=== PATIENT | female | born 1930 | race Caucasian/White ===

== ENCOUNTER 2016-06-29 12:25 | Observation (INO) | payer MEDICARE ==
[2016-06-29] MEDS ORDERED: ZITHROMAX250 M1 PO (12:58)
[2016-06-29] MEDS ORDERED: COSOPT EYE DROP10 ML OP (12:59)
[2016-06-29] MEDS ORDERED: LISINOPRIL-HCT1 EAC3 PO (12:59)
[2016-06-29] MEDS ORDERED: XALATAN2.5 M1 OP (12:59)
[2016-06-29] MEDS ORDERED: OMEPRAZOLE20 M3 PO (13:00)
[2016-06-29 13:25] LABS: BASO % 0.6 % (0-2); BASO ABSOLUTE COUNT 0.1 tho/cmm (0.0-0.2); EOSINOPHIL ABSOLUTE COUNT 0.2 tho/cmm (0.0-0.7); HCT-HEMATOCRIT 33.2 % (34.0-49.0); HGB-HEMOGLOBIN 11.3 gm/dl (12.0-15.5); IMMATURE GRANULOCYTES ABSOLUTE 0.03 tho/cmm (0-0.03); IMMATURE GRANULOCYTES PERCENT 0.4 % (0-0.3); LYMPH % 12.1 % (20-45); MCH (MEAN CORPUSCULAR HGB) 28.3 pg (28.0-32.0); MCV (MEAN CELL VOLUME) 83.2 fl (82.0-96.0); MEAN PLATELET VOLUME 9.2 cmc (9.4-12.4); MONO % 9.1 % (0-12); MONOCYTE ABSOLUTE COUNT 0.7 tho/cmm (0.0-1.2); NEUTROPHILS % 75.8 % (40-80); PLATELET COUNT 374 tho/cmm (150-450); RED BLOOD COUNT 3.99 mil/cmm (4.00-5.20); RED CELL DISTRIBUTION WIDTH 13.5 % (12.4-16.4); WHITE BLOOD COUNT 7.9 tho/cmm (4.0-10.0)
[2016-06-29 13:43] LABS: ANION GAP 14 mmol/L (0-20); BLOOD UREA NITROGEN 8 mg/dl (6-24); CALCIUM 8.7 mg/dl (8.5-10.5); CARBON DIOXIDE-VENOUS 23 mmol/L (22-32); CHLORIDE 93 mmol/l (96-110); CREATININE 0.84 mg/dl (0.50-1.10); GLUCOSE 116 mg/dL (70-110); POTASSIUM 3.7 mmol/L (3.7-5.1); SODIUM 126 mmol/L (135-145); eGFR VALUE FOR BLACK 73 mL/Min
[2016-06-29] MEDS ORDERED: CALCIUM CARBON500 M2 PO (13:49)
[2016-06-29] MEDS ORDERED: VITAMIN D31000 UNI4 PO (13:50)
[2016-06-29] MEDS ORDERED: ASPIRIN81 M1 PO (13:50)
[2016-06-29 14:34] LABS: URINE BILIRUBIN NEGATIVE (NEG); URINE BLOOD SMALL (NEG); URINE GLUCOSE (UA) NEGATIVE (NEG); URINE KETONE NEGATIVE (NEG); URINE LEUKOCYTE ESTERASE NEGATIVE (NEG); URINE NITRITE NEGATIVE (NEG); URINE PH 6.5 (5.0-8.0); URINE PROTEIN NEGATIVE (NEG); URINE SPECIFIC GRAVITY 1.005 (1.003-1.030)
[2016-06-29 14:36] LABS: URINE APPEARANCE CLEAR; URINE COLOR YELLOW
[2016-06-29 14:40] LABS: URINE WBC 0 /[HPF] (0-5)
[2016-06-29 14:41] LABS: URINE EPITHELIAL CELLS 0-4 /[HPF] (0-10)
[2016-06-29 14:48] LABS: OSMOLALITY 254 mOsm/kg (275-295)
[2016-06-30 05:44] LABS: ANION GAP 11 mmol/L (0-20); BLOOD UREA NITROGEN 7 mg/dl (6-24); CALCIUM 8.1 mg/dl (8.5-10.5); CARBON DIOXIDE-VENOUS 23 mmol/L (22-32); CHLORIDE 109 mmol/l (96-110); CREATININE 0.67 mg/dl (0.50-1.10); GLUCOSE 96 mg/dL (70-110); SODIUM 139 mmol/L (135-145); eGFR VALUE FOR BLACK >90 mL/Min
[2016-06-30] MEDS ORDERED: TYLENOL325 M2 PO (08:24)
[2016-06-30] MEDS ORDERED: MUCINEX DM ER1 EAC1 PO (08:26)
[2016-06-30] MEDS ORDERED: FLONASE ALLERG9.9 ML (08:27)
== END 2016-06-30 10:10 ==
LOC: EDMED 12:25 → EMR2 16:14 → CAR1 17:40
PROVIDERS: Emergency Medicine; ADMIT Hospitalist
DX: E87.1 Hypo-osmolality and hyponatremia (principal); J06.9 Acute upper respiratory infection, unspecified; R53.1 Weakness; R42 Dizziness and giddiness; Z79.82 Long term (current) use of aspirin; Z79.899 Other long term (current) drug therapy
CPT/HCPCS: G0378; G8978-GP-CH; G8979-GP-CH; G8980-GP-CH; J7030; Q9967